=== PATIENT | female | born 1995 | race Caucasian/White ===

== ENCOUNTER → 2022-06-26 13:19 | Outpatient (BNVA) | payer BC, SELFPAY | PROVIDERS: Visit Provider Nurse Practitioner Women's Health | DX: T83.32XA Displacement of intrauterine contraceptive device, initial encounter (principal); Y76.8 Miscellaneous obstetric and gynecological devices associated with adverse incidents, not elsewhere classified | CPT/HCPCS: 76830 ==

== ENCOUNTER 2022-07-03 11:52 | Day surgery (SDC) | payer BC, SELFPAY ==
[2022-07-02 12:46] VITALS: BMI 42.0
[2022-07-03] VITALS (7 sets, daily range): BP systolic 102–139; BP diastolic 60–85; PULSE 81–96; RESP 16–22; TEMP 36.1–36.5; O2SAT 94–100
[2022-07-03] MEDS: sodium chloride 0.9% 1,000 ML 30 ML IV (12:34)
[2022-07-03] MEDS: lactated ringers 500 ML IV (12:35)
[2022-07-03] MEDS: scopolamine 1.5 Patch 1 PATCH TRANSDERMA (12:36)
--- NOTE | 2022-07-03 12:38 | W.PM.OPSUD ---
Surgery/Procedure H&P Update DATE OF PROCEDURE: July 03, 2022 DATE H&P PERFORMED: 06/26/22 CHANGES TO PREVIOUS DOCUMENTATION: none PREOP DIAGNOSIS: retained IUD PRIMARY INDICATION FOR PROCEDURE: retained IUD PLANNED PROCEDURE: Operation Date: 07/03/22 13:50 Proposed Procedures p Hysteroscopy with IUD removal [id number] T83.39XA(Not Applicable) - Walt Paz MD s Hysteroscopic IUD Removal(Not Applicable) - Walt Paz MD
--- NOTE | 2022-07-03 13:19 | ANES.PREANE2 ---
Pre-Anesthetic Assessment Height/Weight: Height 1.5 m Weight 94.347 kg Temp Pulse Resp BP Pulse Ox O2 Del Method 97.2 F L 81 16 139/85 100 07/03/22 12:00 07/03/22 12:00 07/03/22 12:00 07/03/22 12:00 07/03/22 12:00 07/03/22 12:30 Preop Diagnosis: retained IUD Operation Date: 07/03/22 13:50 Proposed Procedures p Hysteroscopy with IUD removal [id number] T83.39XA(Not Applicable) - Walt Paz MD s Hysteroscopic IUD Removal(Not Applicable) - Walt Paz MD Familial anesthetic complications: None Was Beta Marry taken within 24 hours: N/A Was Clonidine taken within 24 hours: N/A Last intake: Intake Last Liquid Date 07/03/22 Last Liquid Time 03:00 Last Solid Date 07/02/22 Last Solid Time 20:00 Social No alcohol and No tobacco Exam alert, oriented x 3, clear to auscultation bilaterally and regular rate & rhythm Airway Mallampati: Class III Dentition: full CV/HEM Hypertension Metabolic Morbid Obesity Anesthetic Plan ASA status: 3 Anesthesia: General Risk of > 500 ml blood loss (7ml/kg in children): No Medications/Allergies Home Medications Medication Instructions Recorded Confirmed Last Taken Type cetirizine 10 mg tablet (Allergy 10 mg PO DAILY PRN Allergic 06/17/22 07/02/22 07/02/22 06:00 History Relief (cetirizine)) Symptoms fluticasone propionate 50 1 spray intranasal Q12H 06/17/22 07/02/22 05/21/22 History mcg/actuation nasal spray,suspension (Flonase Allergy Relief) losartan 50 mg tablet 50 mg PO DAILY 06/17/22 07/02/22 07/02/22 History tirzepatide 5 mg/0.5 mL 5 mg SUBCUT DIRECTED 06/17/22 07/02/22 06/22/22 History subcutaneous pen injector (Mounjaro) Allergies Allergy/AdvReac Type Severity Reaction Status Date / Time lisinopril Allergy ADR-Cough Verified 07/03/22 12:23 ondansetron [From Zofran] Allergy ALGY-Hives Verified 07/03/22 12:23 Current Medications Generic Name Dose Route Start Last Admin Trade Name Eduardoq PRN Reason Stop Dose Admin Sodium Chloride 1,000 mls @ 30 mls/hr 07/03/22 12:00 07/03/22 12:34 Sodium Chloride 0.9% IV 07/04/22 11:59 30 mls/hr .Q24H JUVE Administration PFSH Anesthesia Family History Brother Diabetes Family/Other Stroke Maternal Denies family history of Cervical cancer Colon cancer Ovarian cancer Breast cancer Hypertension Uterine cancer Female Reproductive History Date of last menstrual period: 07/06/19 Data Anesthesia Cardiac Studies: No Data to Display
--- NOTE | 2022-07-03 14:37 | PM.OP2 ---
Brief Operative Note Date of procedure: 07/03/22 Pre-op diagnosis: retained IUD Post-op diagnosis: same Procedure Done: hysteroscopy, removal of retained IUD Surgeon: Walt Paz Estimated blood loss (mL): 0 Complications: none Post-op Plan: discharge home Condition: stable Disposition: PACU Coding Level of Care Code Acute Code for Chg Fwd Time Spent (min) 30
--- NOTE | 2022-07-03 14:49 | ANE.PACU2 ---
Inpatient post-anesthesia follow up: Airway intact: Yes Vital signs: Temperature 97.0 F Pulse Rate 91 Respiratory Rate 17 Blood Pressure 102/66 Pulse Oximetry 100 Oxygen Delivery Me thod Simple Mask Oxygen Flow Rate 6 Fraction of Inspir ed Oxygen Hydration adequate: Yes Nausea and vomiting: No Pain level: 1 Mental status: Baseline
--- NOTE | 2022-07-03 15:31 | ANE.PACU2 ---
Inpatient post-anesthesia follow up: Airway intact: Yes Vital signs: Temperature 97.7 F Pulse Rate 90 Respiratory Rate 18 Blood Pressure 112/60 Pulse Oximetry 100 Oxygen Delivery Me thod Room Air Oxygen Flow Rate 6 Fraction of Inspir ed Oxygen Hydration adequate: Yes Nausea and vomiting: No Pain level: 1 Mental status: Baseline
--- NOTE | 2022-07-03 17:20 | PM.OP ---
Operative Report Date of procedure: July 03, 2022 Pre-op diagnosis: Preop Diagnosis retained IUD Post-op diagnosis: same, retained mirena IUD removed Post-op findings: normal endometrial cavity mirena IUD attached firmly to endometrial lining Procedure done: hysteroscopy; removal of retained mirena IUD Implants: none Specimens removed/disposition: mirena IUD, complete and intact, discarded Pathology: none Surgeon: Walt Paz MD Estimated blood loss: 0 cc N.A. IV fluids: N.A. Urine output: NA. Complications: none Findings: normal endometrial cavity mirena IUD complete and intact Condition: stable Disposition: PACU Brief History: patient with mirena IUD. Patient had pelvic sono done for pelvic pain, IUD shown on sono to be embedded in endometrium/myometrial junction. IUD was unable to be removed in office. Patient was therefore scheduled to have hysteroscopy and IUD removal to be done under anesthesia in OR. Procedure: Patient taken to the operating room. Anesthesia induced. Patient was placed in dorsolithotomy position, prepped and draped for hysteroscopy. A bivalve speculum was placed in the vagina. The anterior lip of the cervix was grasped with a sharp-toothed tenaculum. The cervix was serially dilated with Hegar dilators. The IUD string was visible at the cervical os, however, the IUD could be easily be removed with traction on the string. A hysteroscopy was placed into the endometrial cavity. The IUD can be seen embedded in the endometrium. An endograsper was placed via a channel in the hysteroscope. The IUD was grasped with the endograsper, removed complete and intact, and then discarded. The endometrial cavity was seen to be intact via hysteroscopic examination. The hysteroscope was then removed. The sharp-toothed tenaculum was removed. There was no bleeding from the endometrial cavity or cervix. The patient was then placed supine and awakened and taken to the PACU. Postop condition: stable EBL: none Sponge and instruments counts were normal x 2 Complications: none
[2022-07-04 07:17] LABS: OR HCG Qualitative Urine Negative (Negative)
== END 2022-07-03 15:39 | disposition home or self-care (01) ==
PROVIDERS: PCP Nurse Practitioner Family; Visit Provider Obstetrics & Gynecology
PROC: 0UDB8ZZ Extraction of Endometrium, Via Natural or Artificial Opening Endoscopic (ICD-10-PCS; CPT 58558; principal; 2022-07-03 13:40)
DX: T83.84XA Pain due to genitourinary prosthetic devices, implants and grafts, initial encounter (principal); Y83.8 Other surgical procedures as the cause of abnormal reaction of the patient, or of later complication, without mention of misadventure at the time of the procedure; I10 Essential (primary) hypertension; E66.01 Morbid (severe) obesity due to excess calories; Z68.41 Body mass index [BMI] 40.0-44.9, adult
CPT/HCPCS: 58562; 81025; 84703; J1100; J1200; J2250; J2704; J3010; J7030; J7120